=== PATIENT | male | born 1955 | race Caucasian/White ===

== ENCOUNTER 2020-05-19 19:27 | Emergency (ER) | payer OTHER, MEDICARE, MEDICAID ==
[~2020-05-19] VITALS: Ht 170.2 cm; Wt 77.1 kg
[2020-05-19 22:08] VITALS: BP 153/82
== END 2020-05-19 22:08 | disposition home or self-care (01) ==
LOC: M.ERS 19:27
DX: S16.1XXA Strain of muscle, fascia and tendon at neck level, initial encounter (principal); I10 Essential (primary) hypertension; K21.9 Gastro-esophageal reflux disease without esophagitis; M81.0 Age-related osteoporosis without current pathological fracture; Z88.8 Allergy status to other drugs, medicaments and biological substances; V89.2XXA Person injured in unspecified motor-vehicle accident, traffic, initial encounter; Y93.89 Activity, other specified; Y92.89 Other specified places as the place of occurrence of the external cause; Y99.8 Other external cause status